=== PATIENT | female | born 1975 | race Caucasian/White ===

== ENCOUNTER 2016-06-03 15:06 | Emergency (ER) | payer OTHER ==
[~2016-06-03] VITALS: Ht 157.5 cm; Wt 54.0 kg
[2016-06-03 15:06] VITALS: BP 128/88; PULSE 74; RESP 18; TEMP 98; O2SAT 100
--- NOTE | 2016-06-03 15:06 | NUR ---
Arrived via [facility] for syncopal episode follow by vomiting x 1. This occured 90 minutes after giving blood. Placed in room 3 . Placed on classroom monitor, blood pressure machine and pulse oximeter. To gown for exam. Side rails up. Report given to Marietta MCMAHAN.
--- NOTE | 2016-06-03 15:10 | NUR ---
Patient brought in by ambulance, alert and oriented x4. States was giving blood at work today around 1230 and began to feel dizzy while standing up at work 1.5 hours following. States that she remembers becoming dizzy and passing out and then waking up to coworker shaking her and yelling for help. Coworker informed that he saw her fall forward on to table, hit right side of head and then fell onto floor. No brusing/swelling/signs of injury noted to head. Patient denies any dizziness/feeling faint or light headed at this time. No head/neck pain per patient. States feels a little nauseated. No deformities/injuries/brusing noted to body. No other complaints/injuries per patient or noted.
--- NOTE | 2016-06-03 15:14 | NUR ---
Dr. Cameron at bedside
[2016-06-03] MEDS ORDERED: ONDANSETRON 4 MG ODT TAB PO ONE (15:15)
--- NOTE | 2016-06-03 16:00 | NUR ---
Patient states is no longer nauseated
--- NOTE | 2016-06-03 16:27 | NUR ---
Patient in stable conditon, speaking with visitor.
--- NOTE | 2016-06-03 16:29 | NUR ---
Dr. Cameron at bedside
[2016-06-03 16:50] VITALS: BP 115/86; PULSE 76; RESP 16; TEMP 97.8; O2SAT 100
--- NOTE | 2016-06-03 16:51 | NUR ---
Patient given written and verbal discharge instructions and verbalizes understanding. ER MD discussed with patient the results and treatment provided.Patient in stable condition. ID arm band removed. Patient educated on pain management and to follow up with PMD in 2 days. Pain Scale 0/10. Opportunity for questions provided and answered.
== END 2016-06-03 16:50 | disposition home or self-care (01) ==
LOC: SED 15:06
DX: R55 Syncope and collapse (principal); R06.02 Shortness of breath; Z88.1 Allergy status to other antibiotic agents
CPT/HCPCS: 82962; 93005; 99283; Q0162